=== PATIENT | male | born 1950 | race Caucasian/White ===

== ENCOUNTER 2024-12-18 08:25 | Day surgery (SDC) | payer OTHER ==
[2024-12-11 16:02] LABS: MEAN PLATELET VOLUME 8.0 FL (7.4-10.4); PRE OP HEMATOCRIT 42.4 % (42.0-52.0); PRE OP HEMOGLOBIN 14.6 g/dL (14.0-17.9); PRE OP PLATELET COUNT 229 X10'3 (140-440); PRE OP WHITE BLOOD COUNT 10.8 10'3 (4.8-10.8); RED CELL DISTRIBUTION WIDTH 13.1 % (11.5-14.5)
[2024-12-11 16:29] LABS: CREATININE 2.08 MG/DL (0.60-1.10); PRE OP ALT 21 U/L (30-65); PRE OP ANION GAP 7 (8-16); PRE OP AST 23 U/L (10-37); PRE OP BILIRUB, TOTAL 0.5 MG/DL (0.0-1.0); PRE OP GLUCOSE 122 MG/DL (70-104); PRE OP POTASSIUM 3.7 MMOL/L (3.4-5.1); PRE OP SODIUM 133 MMOL/L (135-145); TOTAL CARBON DIOXIDE 25.8 MMOL/L (24-32); eGFR 31 ML/MIN
[~2024-12-18] VITALS: Ht 165.1 cm; Wt 64.7 kg
[2024-12-18] VITALS (15 sets, daily range): BP systolic 122–152; BP diastolic 62–80; PULSE 54–68; RESP 14–21; TEMP 98.6; O2SAT 96–100
[2024-12-18] MEDS: ceFAZolin 2gm/dext,iso 50mL 50 ML IV ONE (05:30)
[~2024-12-18 08:25] MED LIST: TAMS-55 PO
[2024-12-18] MEDS ORDERED: fentaNYL/PF 50MCG/1 ML 2ML syringe IV PRN ×2 (08:50)
[2024-12-18] MEDS ORDERED: morphine 4 MG/ML inj SYRINge IV PRN (08:50)
[2024-12-18] MEDS ORDERED: hydrALAZINE 20mg/ml inj. IV PRN (08:50)
[2024-12-18] MEDS ORDERED: ringers solution, lacted 1,000 ML IV SCH (08:50)
[2024-12-18] MEDS ORDERED: ondansetron/PF 4mg/2ml inj IV PRN (08:50)
[2024-12-18] MEDS ORDERED: labetalol 20mg/4ml (5mg/ml) syringe IV PRN (08:50)
[2024-12-18] MEDS: ringers solution, lacted 1,000 ML IV SCH (09:05)
[2024-12-18] MEDS ORDERED: LIDOcaine 1% 30ml preserv. free vial ONE (09:57)
[2024-12-18] MEDS ORDERED: BUPIVAcaine/PF 2.5mg/ml (0.25%) 10ml vial ONE (09:57)
[2024-12-18] MEDS ORDERED: propofol inj 20 ML IV ONE (10:12)
[2024-12-18] MEDS ORDERED: fentaNYL/PF 50MCG/1 ML 2ML syringe ONE (10:12)
[2024-12-18] MEDS ORDERED: MIDAZolam 1 MG/ML 5ML VIAL ONE (10:12)
[2024-12-18] MEDS ORDERED: ondansetron/PF 4mg/2ml inj ONE (10:13)
[2024-12-18] MEDS ORDERED: LIDOcaine 2% (20mg/ml) 5ml vial ONE (10:13)
[2024-12-18] MEDS ORDERED: dexamethasone sod phosphate 4mg/ml inj. ONE (10:13)
[2024-12-18] MEDS: BUPIVAcaine/PF 2.5 mg/ml (0.25%) 30ml vial IJ ONE (10:25)
[2024-12-18] MEDS ORDERED: oxyCODONE/APAP 5-325mg tablet PO PRN (11:40)
--- NOTE | 2024-12-18 11:44 | OPERATIVE REPORT ---
Operative Report Providers to CC: LAYTON YIN MD ~ Date of Procedure: Dec 18, 2024 Pre-Operative Diagnosis: Umbilical hernia Post-Operative Diagnosis 2 cm umbilical hernia Procedure Performed 2 cm umbilical hernia repair with mesh Surgeon: Layton Yin MD FACS [employer] None Anesthesiologist: Juma Jc Type of Anesthesia: General Findings: 2 cm fascial defect at the level of the umbilicus Wound class I Complications None Prosthetics\Implants used: 1.7 in diameter coated polypropylene mesh Estimated Blood Loss: Minimal Specimen Removed: Hernia sac excised and discarded Description of Procedure: Patient was brought to the operating room and identified by the nursing staff and the attending physician. Patient was placed supine and general anesthesia was induced. Patient's abdomen was prepped and draped in the standard sterile fashion. Superior margin umbilical incision was made in a vertical fashion. This was deepened down until an umbilical hernia sac was encountered. This was mobilized away from the underside of the umbilical skin and opened. Preperitoneal fat and some omentum was mobilized out of the hernia sac and reduced. Fascial defect was about 1-2 cm in diameter. The edges were freshened. The umbilical skin was completely released. A 1.7 in diameter coate d polypropylene mesh was passed through the fascial defect and secured circumferentially with interrupted 0 Ethibond sutures. Fascia was closed over the mesh with absorbable suture, umbilical root was reattached to the fascia with absorbable suture and the incision was closed in layers, also with absorbable suture. Patient tolerated the procedure well. Sterile dressings were applied and he was taken to the postanesthesia care unit in stable condition. Counts repoted as correct: Yes LAYTON YIN MD Dec 18, 2024 11:44
== END 2024-12-18 13:33 | disposition home or self-care (01) ==
LOC: PRE-OP 08:25 → PAS 13:33
PROVIDERS: ATTEND Surgery
DX: K42.9 Umbilical hernia without obstruction or gangrene (principal); I10 Essential (primary) hypertension; Z87.891 Personal history of nicotine dependence; Z87.442 Personal history of urinary calculi; Z79.2 Long term (current) use of antibiotics; Z79.899 Other long term (current) drug therapy; Z94.4 Liver transplant status; Z91.041 Radiographic dye allergy status
CPT/HCPCS: 36415; 49591; 80053; 82948; 85025; C1781; J1100; J2003; J2250; J2405; J2704; J3010; J3490; J7030; J7120; Z7506; Z7512; A4618; A7000